=== PATIENT | male | born 1980 | race Caucasian/White ===

== ENCOUNTER 2018-07-22 05:38 | Day surgery (SDC) | payer BC ==
[~2018-07-22] VITALS: Ht 193 cm; Wt 135.2 kg
[~2018-07-22 05:38] MED LIST: ADDERALL30 MG PO; CARDIZEM CD120 M1 PO; LAMICTAL100 MG PO; LAMICTAL150 M1 PO; LO-DOSE ASPIRIN81 M2 PO; MEN'S ONE DAIL1 EACH PO; WELLBUTRIN XL300 MG PO
[2018-07-22] MEDS ORDERED: CANDESARTAN CILE4 MG PO (06:38)
[2018-07-22 06:57] VITALS: BP 131/77
[2018-07-22 09:50] VITALS: BP 131/76
== END 2018-07-22 10:10 | disposition home or self-care (01) ==
LOC: SDC 05:38
PROC: 08B53ZZ Excision of Left Vitreous, Percutaneous Approach (ICD-10-PCS; principal; 2018-07-22)
DX: H33.002 Unspecified retinal detachment with retinal break, left eye (principal); I48.91 Unspecified atrial fibrillation; Z87.891 Personal history of nicotine dependence; I10 Essential (primary) hypertension; Z79.82 Long term (current) use of aspirin
CPT/HCPCS: J0690; J2250; J3010; J3300